=== PATIENT | male | born 1975 | race Caucasian/White ===

== ENCOUNTER 2021-10-16 09:37 | Day surgery (SDC) | payer OTHER ==
[2021-10-15 09:38] LABS: COVID AG,FIA SOURCE NASOPHARYNGEAL
[~2021-10-16] VITALS: Ht 175.3 cm; Wt 160.0 kg
[~2021-10-16 09:37] MED LIST: SODIUM CHLORIDE 0.9% 1,000 ML IV ONE; SODIUM CHLORIDE 0.9% 1,000 ML ONE
[2021-10-16] MEDS ORDERED: PROPOFOL 1% 20 ML VIAL IVP ONE (09:38)
[2021-10-16] MEDS ORDERED: LIDOCAINE/PF 2% 5 ML VIAL IM ONE (09:38)
[2021-10-16 11:26] LABS: GLUCOMETER DEV NAME(LOC) SDS.; GLUCOSE,POINT OF CARE 80 MG/DL (70-110)
== END 2021-10-16 14:20 | disposition home or self-care (01) ==
LOC: SURGERY 09:37
PROVIDERS: ATTEND Internal Medicine Gastroenterology
DX: R93.3 Abnormal findings on diagnostic imaging of other parts of digestive tract (principal); C7A.021 Malignant carcinoid tumor of the cecum; I10 Essential (primary) hypertension; E11.9 Type 2 diabetes mellitus without complications; M10.9 Gout, unspecified; F32.A Depression, unspecified; Z79.899 Other long term (current) drug therapy; Z20.822 Contact with and (suspected) exposure to COVID-19
CPT/HCPCS: 45380; 82962; 87426; 88305; C1769; C9803; J2704; J3490; J7030